=== PATIENT | male | born 1945 | race Caucasian/White ===

== ENCOUNTER 2020-11-09 00:20 | Inpatient (IN) | payer MEDICARE ==
[~2020-11-09] VITALS: Ht 177.8 cm; Wt 136.1 kg
[2020-11-09 00:37] VITALS: BP 117/75
[2020-11-09 00:53] LABS: ABSOLUTE BASOPHILS 0.1 thou/uL (0.0-0.2); ABSOLUTE EOSINOPHILS 0.1 thou/uL (0.0-0.7); ABSOLUTE LYMPHOCYTES 1.1 thou/uL (0.8-5.3); ABSOLUTE MONOCYTES 1.1 thou/uL (0.0-1.2); ABSOLUTE NEUTROPHILS 3.6 thou/uL (1.6-8.1); BASOPHILS 0.9 %; HEMATOCRIT 40.4 % (42.0-52.0); HEMOGLOBIN 14.2 gm/dL (14.0-18.0); MCH 33.4 pg (26.0-34.0); MCHC 35.1 g/dL (28.0-37.0); MCV 95.2 fL (80.0-100.0); MONOCYTES 18.7 %; MPV 7.7 fl. (7.2-11.1); NUCLEATED RBCS 0 /100WBC; PLATELET COUNT* 161 thou/uL (150-400); POLYS 60.4 %; RBC 4.25 mil/uL (4.50-6.00); WBC 5.9 thou/uL (4.0-11.0)
[2020-11-09 00:58] LABS: CALCIUM 8.4 mg/dL (8.5-10.1); CREATININE 1.8 mg/dL (0.6-1.3); POTASSIUM 3.9 mmol/L (3.5-5.1)
[2020-11-09 01:09] LABS: ALBUMIN 3.5 g/dL (3.4-5.0); MAGNESIUM 2.2 mg/dL (1.8-2.4); TOTAL BILIRUBIN 0.5 mg/dL (<0.1-1.0); TOTAL PROTEIN 6.6 g/dL (6.4-8.2)
[2020-11-09 01:30] LABS: INR 0.9; PROTIME 10.1 Seconds (9.20-11.50)
--- NOTE | 2020-11-09 01:43 | NUR ---
CALLED RT - PT COVID NEGATIVE, ALBUTERAL TX ORDERED. VERBAL ORDER FROM DR DYER FOR ABG.
[2020-11-09 02:26] LABS: BE -1.3 mmol/L (-2 to +3); pH 7.312 (7.340-7.450)
[2020-11-09 02:32] LABS: PO2 381.3 mmHg (75.0-100.0)
[2020-11-09 06:15] LABS: BE -2.6 mmol/L (-2 to +3); PCO2 49.5 mmHg (35.0-45.0); PO2 81.9 mmHg (75.0-100.0); pH 7.307 (7.340-7.450)
[2020-11-09 08:23] LABS: URINE BLOOD NEGATIVE (Negative); URINE CLARITY CLEAR; URINE COLOR YELLOW; URINE GLUCOSE-RANDOM NEGATIVE (Negative); URINE KETONES TRACE (Negative); URINE LEUKOCYTES-REFLEX NEGATIVE (Negative); URINE NITRITE-REFLEX NEGATIVE (Negative); URINE PROTEIN TRACE (Negative); URINE SPECIFIC GRAVITY >= 1.030 (1.005-1.030); URINE UROBILINOGEN 0.2 E.U./dl (0.2-1.0)
[2020-11-09 08:28] LABS: ICTOTEST (BILI CONFIRMATORY) Negative (Negative); URINE BILIRUBIN 1+ (Negative)
[2020-11-09] MEDS ORDERED: LOPRESSOR50 MG PO (09:43)
[2020-11-09] MEDS ORDERED: FUROSEMIDE 20 M20 MG PO (09:44)
[2020-11-09] MEDS ORDERED: ELIQUIS5 MG PO (09:45)
[2020-11-09] MEDS ORDERED: MONTELUKAST SODI4 M1 PO (09:45)
[2020-11-09] MEDS ORDERED: PLAVIX 75 MG TA75 MG PO (09:46)
[2020-11-09] MEDS ORDERED: LIPITOR40 MG PO (09:46)
[2020-11-09] MEDS ORDERED: ZESTRIL5 MG PO (09:47)
[2020-11-09] MEDS ORDERED: IPRAT-ALBUT 0.5-3 ML INH (09:48)
[2020-11-09] MEDS ORDERED: OSELTAMIVIR6 MG/1 ML PO (09:49)
[2020-11-09] MEDS ORDERED: PROAIR HFA8.5 GM INH (09:49)
[2020-11-09] MEDS ORDERED: DOXYCYCLINE 10100 M2 PO (09:50)
[2020-11-09] MEDS ORDERED: NICODERM CQ1 EAC1 TRANSDERM (09:51)
[2020-11-09] MEDS ORDERED: ASA81BEC PO (09:56)
[2020-11-09] MEDS ORDERED: IMODIUM A-D2 MG PO (09:56)
[2020-11-09] MEDS ORDERED: VITAMIN C500 M1 PO (09:58)
[2020-11-09] MEDS ORDERED: SINGULAIR 10 MG10 M1 PO (09:58)
[2020-11-09 11:08] VITALS: BP 130/61
--- NOTE | 2020-11-09 11:50 | EKG ---
[place] [address] ELECTROCARDIOGRAM REPORT Name: TIM CASTELLON Room: [address] ADM IN M.R.#: [id number] Admission: 11/09/20 Attend Phys: Grady Lozada Discharge: Date of : 41 Date of Service: 11/09/20 0022 Report #: [id number] THIS REPORT FOR: //name// [facility] ED Test Date: 2020-11-09 Test Time: 00:22:11 Pat Name: TIM CASTELLON Department: Room: [facility] Gender: M Dumper: [place] : 1945 Requested By: Mary Cook Order Number: [id number] MD: Tim Grullon Measurements Intervals [place] Rate: 101 P: -30 DE: 162 QRS: -38 QRSD: 102 T: 124 QT: 345 QTc: 448 Interpretive Statements Sinus tachycardia Atrial premature complex Left axis deviation Abnormal T, consider ischemia, lateral leads No previous ECG available for comparison Electronically Signed On 11-09-2020 11:50:00 CDT by Tim Grullon [email or web address] <ELECTRONICALLY SIGNED> By: Tim Grullon MD, [facility] 11/09/20 1150 0022 0022 Tim Grullon MD, [facility] /EPI
[2020-11-09 13:00] VITALS: BP 106/67
[2020-11-09 16:00] VITALS: BP 156/70
[2020-11-09 20:06] VITALS: BP 129/67
[2020-11-10 01:18] VITALS: BP 122/66
[2020-11-10 05:00] LABS: HEMATOCRIT 39.3 % (42.0-52.0); HEMOGLOBIN 13.5 gm/dL (14.0-18.0); MCHC 34.4 g/dL (28.0-37.0); MCV 95.7 fL (80.0-100.0); MPV 7.9 fl. (7.2-11.1); RBC 4.1 mil/uL (4.50-6.00); RDW-CV 14.4 % (10.5-14.5); WBC 9.2 thou/uL (4.0-11.0)
[2020-11-10 05:08] LABS: CALCIUM 8.8 mg/dL (8.5-10.1); CREATININE 1.7 mg/dL (0.6-1.3); POTASSIUM 4.6 mmol/L (3.5-5.1)
[2020-11-10 06:41] VITALS: BP 131/36
--- NOTE | 2020-11-10 07:10 | NUR ---
CHANGE OF SHIFT BEDSIDE REPORT GIVEN PATIEMT SEEN AT BEDSIDE, IN BED RESTING ASSUMED PATIENT CARE
[2020-11-10 08:00] VITALS: BP 125/59
--- NOTE | 2020-11-10 08:06 | NUR ---
ASSUMED CARE OF PT 11/09/20 AT APPROX 1900, PT A&OX4, VSS ON 5L NC - BIPAP WHILE SLEEPING. AT APPROX 0445 TELE MONITOR APPEARED TO BE POSSIBLE AFIB; EKG ORDERED, EKG SHOWED AFIB WITH RVR. YOU CALL SENT TO DR. NIXON AT 0510. CALL BACK RECEIVED AT 0525, ORDERS GIVEN FOR CARDIZEM 10 MG BOLUS IV AND CARDIZEM 10 MG/H DRIP, AND CARDIOLOGY CONSULT. REPORT GIVEN AND CARE TRANSFERED TO DAY SHIFT NURSE 11/10/20 AT APPROX 0710.
--- NOTE | 2020-11-10 10:06 | NUR ---
Nutrition: Pt admitted with respiratory failure. Seen for high BMI. He stated he usually eats out, doesn't cook. Has issues with swelling and fluid retention. Wt: 300#. BG 201, albumin 3.5. Heart Healthy diet, eating 100%. We briefly discussed lowering Na in diet and making low Na choices when eating out. Pt didn't seem interested in changing his diet, but he took the handouts. Limited adherance to nutrition-related recommendations R/T low Na diet AEB pt not wanting to change diet. Handouts/discussion on above topics. RD expects poor to fair complliance. Mild risk.
[2020-11-10 12:00] VITALS: BP 159/78
--- NOTE | 2020-11-10 13:36 | EKG ---
[place] [address] ELECTROCARDIOGRAM REPORT Name: TIM CASTELLON Room: [address] ADM IN M.R.#: [id number] Admission: 11/09/20 Attend Phys: Grady Lozada Discharge: Date of : 41 Date of Service: 11/10/20 0502 Report #: [id number] THIS REPORT FOR: //name// [facility] Test Date: 2020-11-10 Test Time: 05:02:58 Pat Name: TIM CASTELLON Department: Room: [address] Gender: M Legal Administrative Secretary: ANGELITA : 1945 Requested By: Grady Lozada Order Number: [id number] Chante MD: Tim Grullon Measurements Intervals [place] Rate: 143 P: UT: QRS: -36 QRSD: 98 T: 128 QT: 313 QTc: 483 Interpretive Statements Atrial fibrillation with rapid V-rate Left axis deviation Repolarization abnormality, prob rate related Baseline wander in lead(s) V1,V2 Compared to ECG 11/09/2020 00:22:11 Sinus tachycardia no longer present Electronically Signed On 11-10-2020 13:36:40 CDT by Tim Grullon [email or web address] <ELECTRONICALLY SIGNED> By: Tim Grullon MD, [facility] 11/10/20 1336 0502 0502 Tim Grullon MD, [facility] /EPI
--- NOTE | 2020-11-10 14:48 | 2DMMODE ---
[place] [address] 2 D/M-MODE ECHOCARDIOGRAM Name: TIM CASTELLON Room: [facility] IN ..#: [id number] Admission: 11/09/20 Attend Phys: Grady Lozada Discharge: Date of : 41 Date of Service: 11/10/20 1448 Report #: [id number] THIS REPORT FOR: cc: FAM - No family physician/PCP FAM - No family physician/PCP Isreal Dillard MD [facility] ~ APPROVED REPORT Study performed: 11/10/2020 11:52:25 EXAM: Comprehensive 2D, Doppler, and color-flow Echocardiogram Patient Location: In-Patient Room #: [facility] Status: routine BSA: 2.48 HR: 110 bpm BP: 125/59 mmHg Rhythm: Atrial Fibrillation Other Information Study Quality: Technically Difficult Technically limited study due to body habitus. Indications Dyspnea 2D Dimensions LVOT Diam: 21.90 (18-24mm) Ascending Ao: 32.23 (22-36mm) Aortic Root: 33.47 mm Aortic Valve AoV Peak Humphrey.: 2.70 m/s AO Peak Gr.: 29.18 mmHg LVOT Max P.32 mmHg AO Mean Gr.: 14.81 mmHg LVOT Mean P.36 mmHg LVOT Max V: 0.76 m/s AO V2 VTI: 43.44 cm LVOT Mean V: 0.55 m/s JOCELYN (VTI): 1.12 cm2 LVOT V1 VTI: 12.97 cm Left Ventricle The left ventricle is normal size. There is normal LV segmental wall motion. There is normal left ventricular wall thickness. Left ventricular systolic function is normal. LVEF is 60-65%. This study is not technically sufficient to allow evaluation [place] [address] 2 D/M-MODE ECHOCARDIOGRAM Name: TIM CASTELLON Room: [address] IN .R.#: [id number] Admission: 11/09/20 Attend Phys: Grady Lozada Discharge: Date of : 41 Date of Service: 11/10/20 1448 Report #: [id number] function due to atrial fibrillation. Right Ventricle The right ventricle is normal size. The right ventricular systolic function is normal. Atria The left atrium size is normal. The right atrium size is normal. Aortic Valve The Aortic valve is sclerotic. No aortic regurgitation is present. Moderate aortic stenosis. Mitral Valve The mitral valve is normal in structure. There is no mitral valve regurgitation noted. No evidence of mitral valve stenosis. Tricuspid Valve The tricuspid valve is normal in structure. Trace tricuspid regurgitation. Pulmonic Valve Pulmonic valve is not well visualized. Great Vessels The aortic root is normal in size. IVC is normal in size and collapses >50% with inspiration. Pericardium There is no pericardial effusion. <Conclusion> The left ventricle is normal size. There is normal left ventricular wall thickness. Left ventricular systolic function is normal. LVEF is 60-65%. This study is not technically sufficient to allow evaluation of the LV diastolic function due to atrial fibrillation. The Aortic valve is sclerotic. [place] [address] 2 D/M-MODE ECHOCARDIOGRAM Name: TIM CASTELLON Room: [address] IN .R.#: [id number] Admission: 11/09/20 Attend Phys: Grady Lozada Discharge: Date of : 41 Date of Service: 11/10/20 1448 Report #: [id number] Trace tricuspid regurgitation. IVC is normal in size and collapses >50% with inspiration. <ELECTRONICALLY SIGNED> By: Isreal Dillard MD, FACC 11/10/20 1448 144 Isreal Dillard MD, FACC /INF
[2020-11-10 16:00] VITALS: BP 127/64
--- NOTE | 2020-11-10 16:04 | NUR ---
PT ADMITTED WITH AFIB DX. PT INDICATED HE LIVES HOME ALONE. PT HAS WALKER, BIPAP AND O2 AT 5L NOC. PT IS ACTIVE AND INDEPENDENT ADLS. PT INDICATED HE HAS NO HX WITH HH OR SNF. CM TO CONT TO FOLLOW.
[2020-11-10 20:10] VITALS: BP 136/70
[2020-11-11 00:24] VITALS: BP 113/54
--- NOTE | 2020-11-11 03:59 | NUR ---
ASSUMED PT CARE AT APPROX. 1930. PT IS A/OX4. VSS. PT UPSET BECAUSE HE DID NOT GET A FOOD TRAY TODAY FOR DINNER. PT WAS EATING A BOXED LUNCH UPON ASSESSMENT. PT WAS AGITATED AND FRUSTRATED AND APOLOGIZED FOR BEING UPSET. RN SAT W/ PATIENT FOR A LITTLE WHILE AND REASSURED HIM THAT HE DIDN'T NEED TO APOLOGIZE AND THAT HE HAS ALOT GOING ON. LATER IN THE NOC THE PT WAS TEARFUL AND REPORTED THAT HIS OF HIS CHILDREN JUST RECENTLY AND HIS SON IN LAW JUST ON THE November AND WAS GOING TO BE BURIED THIS MONDAY. PT STATED HE "THINKS ALL OF THESE STRESSORS CAUSED HIS HEART TO ACT UP." PT WAS ON A CARDIZEM GTT. PT CONVERTED IN TO SR AT APPROX. 0200. CARDIZEM GTT STOPPED AT APPROX. 0215. HR 55-60'S. PT DENIES C/O CHEST PAIN. HOURLY ROUNDS COMPLETE CHARTED. MEDICATIONS ADMINISTERED PRESCRIBED. WILL CONT TO MONITOR.
[2020-11-11 04:00] VITALS: BP 124/63
[2020-11-11 06:24] LABS: ANION GAP 6 mmol/L (7-16); BUN 45 mg/dL (7-18); CHLORIDE 105 mmol/L (98-107); CO2 31 mmol/L (21-32); CREATININE 1.7 mg/dL (0.6-1.3); GLUCOSE 219 mg/dL (70-99); POTASSIUM 4.2 mmol/L (3.5-5.1); SODIUM 142 mmol/L (136-145)
[2020-11-11 06:33] LABS: SERUM ASSESSMENT Clear
[2020-11-11 06:34] LABS: CHOLESTEROL 128 mg/dL (<200); HDL CHOLESTEROL 48 mg/dL (>40); LDL CHOLESTEROL 69 mg/dL (<100); TC:HDL 2.7 Ratio (Not establshd); TRIGLYCERIDE 55 mg/dL (<150); VLDL 11 mg/dL (<40)
[2020-11-11 08:00] VITALS: BP 142/61
--- NOTE | 2020-11-11 09:29 | EKG ---
[place] [address] ELECTROCARDIOGRAM REPORT Name: TIM CASTELLON Room: [address] ADM IN M.R.#: [id number] Admission: 11/09/20 Attend Phys: Grady Lozada Discharge: Date of : 41 Date of Service: 11/11/20 0908 Report #: [id number] THIS REPORT FOR: //name// [facility] Test Date: 2020-11-11 Test Time: 09:08:20 Pat Name: TIM CASTELLON Department: Room: [address] Gender: M Supervisor [employer]: : 1945 Requested By: Tim Grullon Order Number: [id number] Chante MD: Tim Grullon Measurements Intervals [place] Rate: 81 P: -47 [place]: 102 QRS: -31 QRSD: 111 T: 153 QT: 377 QTc: 438 Interpretive Statements Sinus or ectopic atrial rhythm Atrial premature complexes Left axis deviation Abnrm T, consider ischemia, anterolateral lds Baseline wander in lead(s) II,aVF,V1 Compared to ECG 11/10/2020 05:02:58 Atrial fibrillation no longer present Electronically Signed On 11-11-2020 9:28:58 CDT by Tim Grullon [email or web address] <ELECTRONICALLY SIGNED> By: Tim Grullon MD, [facility] 11/11/20927 7 7 Tim Grullon MD, [facility] /EPI
--- NOTE | 2020-11-11 12:25 | CON ---
[address] [address] CONSULTATION Name: TIM CASTELLON Room: [address] IN M.R.#: [id number] Admission: 11/09/20 Attend Phys: Fernando Canada Discharge: Date of : 41 Report #: [id number] THIS REPORT FOR: cc: FAM - No family physician/PCP FAM - No family physician/PCP Tim Grullon MD [facility] ~ DOC #: [id number] Tim Grullon MD [facility] DATE OF CONSULTATION: 11/09/2020 CARDIOLOGY CONSULTATION HISTORY OF PRESENT ILLNESS: The patient is a 75-year-old male who I was asked to see in the emergency room today after complained to being short of breath. The patient has an extensive and complicated past medical history. Unfortunately, he has never been here to [place] before. He notes he had a previous history of stent and eventually underwent triple vessel bypass surgery in [place], [place] years ago. Recently, he has been followed at [facility] in [place]. He has a history of COPD and unfortunately continues to smoke. Recently, he has been coughing and more short of breath. He called EMS and was brought to the emergency room today for further evaluation and treatment. He denies recent chest pain, palpitations, syncope. He does have edema. PAST MEDICAL HISTORY: He has had appendectomy, tonsillectomy, cataract extraction, hyperlipidemia. No history of diabetes. CURRENT MEDICATIONS: Consist of the following: He does take an aspirin a day. He has sleep apnea, uses CPAP. He has DuoNeb treatments. PHYSICAL EXAMINATION: GENERAL: Revealed an obese elderly male who appeared in mild respiratory distress. VITAL SIGNS: Blood pressure 130/60, pulse 70, he is afebrile. HEENT: He was anicteric. Conjunctivae pink. Mucous membranes moist. NECK: Veins difficult to assess due to obesity. No carotid bruits. CHEST: Reveals expiratory wheezes. HEART: Regular rate and rhythm. Grade 3 systolic ejection murmur. ABDOMEN: Obese. EXTREMITIES: Had pitting edema. Dorsalis pedis pulse 2+. SKIN: Cool and dry. NEUROLOGIC: Nonfocal. IMAGING: His ECG on admission showed a sinus rhythm, left axis deviation, nonspecific ST segment changes. His workup in the emergency room, he had a portable chest x-ray that showed no evidence of [place] [address] CONSULTATION Name: TIM CASTELLON Room: [address]#: [id number] Admission: 11/09/20 Attend Phys: Fernando Canada Discharge: Date of : 41 Report #: [id number] LABORATORY DATA: Potassium 3.9, creatinine 1.8. Troponins all 0.06. BNP 310. Hemoglobin 14.2. His COVID antigen stat test was negative. Urinalysis had trace protein. IMPRESSION AND RECOMMENDATIONS: 1. Chronic obstructive pulmonary disease. 2. Sleep apnea. 3. Obesity. 4. Previous coronary artery bypass surgery. No recent angina. I would continue aspirin a day. 5. Tobacco abuse. Tim Grullon MD [facility] [email or web address] <ELECTRONICALLY SIGNED> By: Tim Grullon MD, [facility] 11/11/20 1225 1022 1325Dakirit Grullon MD, [facility] /nt
[2020-11-11 12:57] VITALS: BP 133/63
--- NOTE | 2020-11-11 14:05 | NUR ---
Anticipate dc to home tomorrow. Start amio today. Plan dc with HH.
[2020-11-11 16:06] VITALS: BP 126/63
--- NOTE | 2020-11-11 17:37 | NUR ---
PATIENT RESTING IN BED, EATING DINNER. IV TO LEFT AC, SALINE LOCK, PATENT. 98% ON 5L NASAL CANNULA. C/O OF HEARTBURN, TUMS GIVEN X1. ALERT AND ORIENTED X4. BED IN LOW/LOCKED POSITION. CALL LIGHT WITHIN REACH. ALL QUESTIONS AND CONCERNS ADDRESSED.
[2020-11-11 22:39] VITALS: BP 153/70
[2020-11-12] VITALS: BP 142/67
[2020-11-12 04:08] VITALS: BP 151/61
[2020-11-12 05:01] LABS: CREATININE 1.7 mg/dL (0.6-1.3); POTASSIUM 4.8 mmol/L (3.5-5.1)
[2020-11-12 07:45] VITALS: BP 140/68
[2020-11-12] MEDS ORDERED: PACERONE 200 M200 M1 PO (08:46)
[2020-11-12] MEDS ORDERED: ELIQUIS5 MG PO (08:47)
[2020-11-12 09:59] VITALS: BP 140/65
[2020-11-12 10:55] VITALS: BP 140/65
--- NOTE | 2020-11-12 11:14 | NUR ---
PT A&OX4 VSS. PT SBA. CONTINENT OF B/B, URINAL AT BEDSIDE. PT ON 5L O2 (BASELINE HOME USE). IV TO LFA DC'D PRIOR TO PT LEAVING UNIT. SINUS ON MONITOR. NICOTINE PATCH TO VALORIE. PT DENIES PAIN. PT SON AT BEDSIDE AT TIME OF DC EDUCATION. PT STATES UNDERSTANDING OF DC INSTRUCTIONS AND FOLLOW UP INFORMATION. PT CONFIRMED CORRECT PHARMACY FOR RX CALLED IN. PT DRESSED INDEPENDENTLY. PT LEFT UNIT IN WHEELCHAIT WITH NURSING STAFF.
--- NOTE | 2020-11-12 11:59 | EKG ---
[place] [address] ELECTROCARDIOGRAM REPORT Name: TIM CASTELLON Room: [address] DIS IN M.R.#: [id number] Admission: 11/09/20 Attend Phys: Grady Lozada Discharge: 11/12/20 Date of : 41 Date of Service: 11/12/20804 Report #: [id number] THIS REPORT FOR: //name// [facility] Test Date: 2020-11-12 Test Time: 08:05:26 Pat Name: TIM CASTELLON Department: Room: [address] Gender: M Cosmetic Sales Consultant: : 1945 Requested By: Tim Grullon Order Number: [id number] Reading MD: Isreal Dillard Measurements Intervals [place] Rate: 80 P: ID: QRS: -32 QRSD: 113 T: 139 QT: 352 QTc: 406 Interpretive Statements Sinus rhythm Left axis deviation Repol abnrm suggests ischemia, anterolateral Compared to ECG 11/11/2020 09:08:20 Early repolarization now present Ectopic atrial rhythm no longer present Atrial premature complex(es) no longer present Possible ischemia still present Electronically Signed On 11-12-2020 11:59:28 CDT by Isreal Dillard [email or web address] <ELECTRONICALLY SIGNED> By: Isreal Dillard MD, [facility] 11/12/20 1159 4 4 Isreal Dillard MD, [facility] /EPI
== END 2020-11-12 11:05 | disposition home health service (06) | DRG 291 ==
LOC: M.ERS 00:20 → M.TBA-ER 02:59 → M.2W 02:59
PROVIDERS: Emergency Medicine; Family Medicine; Internal Medicine Cardiovascular Disease; ADMIT Internal Medicine; ATTEND Internal Medicine
PROC: 5A09357 Assistance with Respiratory Ventilation, Less than 24 Consecutive Hours, Continuous Positive Airway Pressure (ICD-10-PCS; principal; 2020-11-09)
PROC: 5A09357 Assistance with Respiratory Ventilation, Less than 24 Consecutive Hours, Continuous Positive Airway Pressure (ICD-10-PCS; 2020-11-11)
DX: I50.33 Acute on chronic diastolic (congestive) heart failure (principal); J96.21 Acute and chronic respiratory failure with hypoxia; J96.22 Acute and chronic respiratory failure with hypercapnia; J44.1 Chronic obstructive pulmonary disease with (acute) exacerbation; I48.92 Unspecified atrial flutter; Z68.41 Body mass index [BMI] 40.0-44.9, adult; I48.20 Chronic atrial fibrillation, unspecified; N18.9 Chronic kidney disease, unspecified; Z20.822 Contact with and (suspected) exposure to COVID-19; E78.5 Hyperlipidemia, unspecified; I25.10 Atherosclerotic heart disease of native coronary artery without angina pectoris; E66.01 Morbid (severe) obesity due to excess calories; I35.0 Nonrheumatic aortic (valve) stenosis; G47.33 Obstructive sleep apnea (adult) (pediatric); I48.91 Unspecified atrial fibrillation; F17.200 Nicotine dependence, unspecified, uncomplicated; Z95.1 Presence of aortocoronary bypass graft; Z95.5 Presence of coronary angioplasty implant and graft; Z90.49 Acquired absence of other specified parts of digestive tract; Z98.41 Cataract extraction status, right eye; Z98.42 Cataract extraction status, left eye; Z79.899 Other long term (current) drug therapy; Z79.82 Long term (current) use of aspirin; Z91.14 Patient's other noncompliance with medication regimen; Z71.6 Tobacco abuse counseling